=== PATIENT | female | born 1945 | race Caucasian/White ===

== ENCOUNTER 2024-10-02 17:49 | Inpatient (IN) | payer MEDICARE, SELFPAY ==
[2024-10-02 21:00] VITALS: BP 163/80; PULSE 71; RESP 16; TEMP 36.9; O2SAT 99
[2024-10-02 21:35] VITALS: O2SAT 99
[2024-10-02] MEDS: SODIUM CHLORIDE 0.9% 1,000 ML 75 ML IV (21:59)
[2024-10-02 22:00] VITALS: BMI 17.9
--- NOTE | 2024-10-02 23:08 | DI.RAD.S_ITS ---
PROCEDURE: XR PELVIS 1-2V INDICATIONS: r hip fx TECHNIQUE: 1 view(s) of the pelvis acquired. COMPARISON: None. FINDINGS: Diffuse osseous demineralization. Acute, varus impacted right proximal femoral intertrochanteric fracture with mild clockwise rotation of the femoral head relative to the right acetabulum. Surgical clips overlying the sacroiliac joints and pelvic ring. No other acute fracture or dislocation. IMPRESSION: Acute varus impacted right proximal femoral intertrochanteric fracture. Dictated by: Paolo Eaton M.D. on 10/03/2024 at 0:03 Approved by: Paolo Eaton M.D. on 10/03/2024 at 0:04
[2024-10-02] MEDS: OXYCODONE IR 5 MG TABLET PO (23:33)
[2024-10-02] MEDS: ACETAMINOPHEN 325 MG TABLET 650 MG PO (23:34)
[2024-10-03] VITALS (18 sets, daily range): BP systolic 94–155; BP diastolic 52–92; PULSE 60–74; RESP 12–20; TEMP 36.1–37.2; O2SAT 97–100; BMI 17.9
--- NOTE | 2024-10-03 | DI.RAD.S_ITS ---
PROCEDURE: XR HIP RT 2V INDICATIONS: RT HIP IM NAILING TECHNIQUE: 3 intraoperative fluoroscopic views of the hip were acquired. COMPARISON: None. FINDINGS: Intraoperative fluoroscopic images of right hip shows internal fixation of right proximal femur with intramedullary denisse and dynamic screws placement. Right hip alignment is anatomic. IMPRESSION: Fluoro guidance was provided intraoperatively for ORIF of right proximal femur performed by ordering physician. Dictated by: Brien Marti M.D. on 10/03/2024 at 18:09 Approved by: Brien Marti M.D. on 10/03/2024 at 18:10
--- NOTE | 2024-10-03 | DI.RAD.S_ITS ---
PROCEDURE: XR HIP W PEL IF DONE RT 2V INDICATIONS: POST OP TECHNIQUE: Two views of the right were acquired. COMPARISON: None. FINDINGS: Bones: Gamma nail transfixes a transverse intertrochanteric fracture . It is anatomically aligned. SI and hip joints: Moderate right and mild left hip degeneration noted. SI joints are normal. Moderate L5-S1 degenerative disc and facet disease appreciated. Soft tissues: Soft tissue swelling over the surgical site noted IMPRESSION: ORIF right intertrochanteric fracture in anatomic alignment Dictated by: Linden Gar M.D. on 10/04/2024 at 8:27 Approved by: Linden Gar M.D. on 10/04/2024 at 8:28
--- NOTE | 2024-10-03 00:26 | PM.HP.1 ---
History of Present Illness History of Present Illness Date Patient Seen: 10/02/24 Time Patient Seen: 22:45 Chief complaint: right hip pain Narrative: 79 y/o w/o reported PMH, on no prescription medications, transferred from another hospital with Rt hip fracture. She sustained accidental ground level fall. First fracture. Without prior injury-falls. Physically active, hikes. Has osteoporosis in family and on X-ray, takes only MVI. [facility] Social History household members: spouse Smoking Status: Never smoker alcohol intake: current Meds Home Medications and Allergies Home Medications Medication Instructions Recorded Confirmed Type Adults Multivitamin 1 tab PO DAILY 10/02/24 10/02/24 History Allergies Allergy/AdvReac Type Severity Reaction Status Date / Time Penicillins Allergy Mild Dizziness Verified 10/02/24 21:23 Review of Systems Review of Systems Narrative: MSK - Rt hip pain, radiating to knee, worse with movement CVS - w/o palpitations or chest pain, w/o exertional dyspnea GI - negative RS - negative Neuro - w/o prior falls or balance loss Exam Vital Signs (past 8 hours): - 10/02/24 21:00 10/02/24 21:35 Temperature 98.5 F Pulse Rate 71 Respiratory Rate 16 Blood Pressure 163/80 H Pulse Oximetry 99 99 Oxygen Delivery Method Room Air Oxygen Flow Rate 0 0 Oxygen Delivery Method Room Air Oxygen Flow Rate 0 Narrative Exam Narrative: General - in no distress HEENT - atraumatic MSK - Rt leg externally rotated and shortened, tender Rt hip Neuro - w/o deficits, w/o Rt leg numbness or weakness, lucid RS - CTA CVS - RRR, ANDI at [facility] Objective ECG Impression: Pending Assessment & Plan Assessment and plan (1) Femur fracture, right: Qualifiers: Encounter type: initial encounter Femur location: intertrochanteric Fracture alignment: displaced Fracture type: closed Qualified Code(s): S72.141A - Displaced intertrochanteric fracture of right femur, initial encounter for closed fracture Status: Acute Assessment & Plan narrative: Right Hip Fracture - NPO after midnight for Sx - labs ordered for 5 am - EKG, limited echocardiogram if available for ANDI heard at [facility]SB Osteoporosis - vitamin D pending DVT prophylaxis - SCDs Patient consented to a real time, audio-video telemedicine visit with electronic stethoscope and RN assisting during the exam. Patient located at [place], [place]. Provider located in [place]. Time-Based Coding :: [TOTAL MINUTES] spent with patient and on the chart (including review of chart, obtaining history, exam, reviewing outside data, placing orders, documenting exam and treatment plan, and counseling patient) on [DATE].
[2024-10-03] MEDS: OXYCODONE IR 5 MG TABLET PO ×3 (03:37→18:24)
[2024-10-03 06:24] LABS: Add Manual Diff / Slide Review NO; Basophils Absolute Auto 100 /uL (0-100); Eosinophils Absolute Auto 100 /uL (0-450); Eosinophils Percent Auto 1.2 % (2-4); Hematocrit 31.3 % (36-46); Hemoglobin 10.8 g/dL (12.0-16.0); Lymphocytes Absolute Auto 1500 /uL (1100-4500); Lymphocytes Percent Auto 22.4 % (25-40); Mean Corpuscular HGB Conc 34.5 % (30-36); Mean Corpuscular Hemoglobin 32.2 PG (26-34); Mean Corpuscular Volume 93.4 fL (80-100); Monocytes Absolute Auto 800 /uL (0-900); Monocytes Percent Auto 11.6 % (3-14); Neutrophils Absolute Auto 4100 /uL (1500-7000); Neutrophils Percent Auto 63.8 % (50-75); Platelet Count 217 X10^3/uL (150-400); Red Blood Cell Count 3.35 X10^6/uL (4.0-5.2); Red Cell Distribution Width 13.1 % (11.6-14.8); White Blood Cell Count 6.5 X10^3/uL (4.5-11.0)
[2024-10-03 06:31] LABS: INR 0.9 (0.9-1.3); Prothrombin Time 10.5 SECONDS (9.4-12.5)
[2024-10-03 06:33] LABS: PTT Partial Thromboplastin Tim 29 SECONDS (25.1-36.5)
[2024-10-03 06:36] LABS: Alanine Aminotransferase 19 IU/L (<35); Albumin 3.5 g/dL (3.5-5.0); Albumin Globulin Ratio 1.4 (1.0-2.8); Alkaline Phosphatase 59 U/L (38-126); Aspartate Aminotransferase 31 IU/L (14-36); BUN Creatinine Ratio 23.6 (6-22); Bilirubin Total 0.6 mg/dL (0.2-1.3); Blood Urea Nitrogen 13 mg/dL (7-17); Calcium 8.2 mg/dL (8.4-10.2); Carbon Dioxide 24 mmol/L (22-32); Chloride 104 mmol/L (98-107); Estimated Glomerular Filt Rate > 60 mL/min (>60); Globulin 2.5 g/dL (1.7-4.1); Glucose 103 mg/dL (70-99); HEMOLYSIS < 15 (0-50); Potassium 3.6 mmol/L (3.4-5.1); Sodium 135 mmol/L (137-145)
[2024-10-03 06:53] LABS: Vitamin D 25 Hydroxy (D3) 51.3 ng/mL (30.0-100.0)
[2024-10-03] MEDS: ACETAMINOPHEN 325 MG TABLET 650 MG PO ×3 (07:07→18:24)
--- NOTE | 2024-10-03 08:09 | P.CONS_ITS ---
History of Present Illness Consult details Date Patient Seen: 10/03/24 Time Patient Seen: 06:30 Chief complaint: DIRECT ADMIT right hip pain Reason for consult: Right hip fracture Requesting provider: [place] Narrative: The patient is a 79-year-old female that sustained a fall down 4 stairs at her home on 10/02/2024. She was unable to ambulate had immediate right hip pain. She was taken to [facility] and [place] where she was found to have a displaced right proximal femur fracture, intertrochanteric. No surgery was available at [facility] and no transfers to their associated [facility] so transferred to [facility] for orthopedic surgery was requested. The patient does not have diabetes she does not smoke. She has no history of heart or lung problems. She denies any head injury or other injuries or loss of consciousness. She did say that the base of her right thumb was sore but is okay today. She was transferred for orthopedic consultation orthopedic treatment for her right proximal femur fracture. She was a community ambulator. Lives at home. Has been around for help. States prior to the fall yesterday she was out in the garden. Gardening all day. Reports a skin reaction to penicillin that she had for an ear infection in college. Otherwise no medical allergies. Meds Home Medications and Allergies Home Medications Medication Instructions Recorded Confirmed Type Adults Multivitamin 1 tab PO DAILY 10/02/24 10/02/24 History Allergies Allergy/AdvReac Type Severity Reaction Status Date / Time Penicillins Allergy Mild Dizziness Verified 10/02/24 21:23 Review of Systems Review of Systems ROS: Yes All systems reviewed with the patient and are negative except as otherwise documented Exam Vital Signs (past 8 hours): - 10/03/24 01:00 10/03/24 04:00 10/03/24 05:00 Temperature 98.7 F Pulse Rate 70 Respiratory Rate 20 Blood Pressure 142/83 H Pulse Oximetry 98 98 98 Oxygen Delivery Method Room Air Room Air Oxygen Flow Rate 0 0 0 10/03/24 08:00 Temperature 98.2 F Pulse Rate 62 Respiratory Rate 16 Blood Pressure 136/70 Pulse Oximetry 99 Oxygen Delivery Method Oxygen Flow Rate 0 Oxygen Delivery Method Room Air Oxygen Flow Rate 0 Narrative Exam Narrative: General alert and oriented female in no acute distress lying in bed. HEENT exam normocephalic atraumatic Heart regular rate and rhythm Lungs clear to auscultation bilaterally Moving bilateral upper extremities without limitation. No gross deformities. Full finger flexion and extension full wrist extension and flexion Right lower extremity shortened and externally rotated. Dorsiflexion and plantar flexion demonstrated active and intact. Palpable dorsalis pedis pulses. Sensation intact to light touch. Calf soft knee benign. Thigh soft. SCD in place. Lower extremity normal dorsiflexion plantar flexion. Calf and thigh soft. Benign Objective Imaging AP pelvis x-ray: My impression: Displaced intertrochanteric hip fracture right hip varus angulation Labs 10/03/24 05:35 10/03/24 05:35 Labs: Laboratory Results - last 24 hr 10/03/24 05:35 WBC 6.5 RBC 3.35 L Hgb 10.8 L Hct 31.3 L MCV 93.4 MCH 32.2 MCHC 34.5 RDW 13.1 Plt Count 217 Neut % (Auto) 63.8 Lymph % (Auto) 22.4 L [place] % (Auto) 11.6 Eos % (Auto) 1.2 L Baso % (Auto) 1.0 Neut # (Auto) 4100 Lymph # (Auto) 1500 [place] # (Auto) 800 Eos # (Auto) 100 Baso # (Auto) 100 PT 10.5 INR 0.9 APTT 29 Sodium 135 L Potassium 3.6 Chloride 104 Carbon Dioxide 24 BUN 13 Creatinine 0.55 Estimated GFR > 60 BUN/Creatinine Ratio 23.6 H Glucose 103 H Calcium 8.2 L Magnesium 2.0 Total Bilirubin 0.6 AST 31 ALT 19 Alkaline Phosphatase 59 Total Protein 6.0 L Albumin 3.5 Globulin 2.5 Albumin/Globulin Ratio 1.4 25-OH Vitamin D Total 51.3 PFSH Social History marital status: household members: spouse Tobacco & Substance Use Smoking Status: Never smoker alcohol intake: current Assessment & Plan Assessment and plan (1) Femur fracture, right: Qualifiers: Encounter type: initial encounter Femur location: intertrochanteric F racture type: closed Fracture alignment: displaced Qualified Code(s): S72.141A - Displaced intertrochanteric fracture of right femur, initial encounter for closed fracture Status: Acute (2) Intertrochanteric fracture of right hip: Qualifiers: Encounter type: initial encounter Fracture type: closed Fracture alignment: displaced Qualified Code(s): S72.141A - Displaced intertrochanteric fracture of right femur, initial encounter for closed fracture Status: Acute (3) Osteoporotic hip fracture: Qualifiers: Encounter type: initial encounter Laterality: right Qualified Code(s): M80.051A - Age-related osteoporosis with current pathological fracture, right femur, initial encounter for fracture Status: Acute Plan Displaced shortened externally rotated right lower extremity consistent with displaced intertrochanteric hip fracture, proximal femur fracture, osteoporotic-- The patient has a displaced hip fracture. She was indicated for surgical fixation to restore alignment and mobility and reduce the risks of prolonged immobility and bedrest. Surgical risks and fracture risks discussed including blood clots, blood loss, nonunion malunion, symptomatic hardware, need for additional procedures, posttraumatic arthritis, nerve or vessel injury, infection. Discussed that the benefits of surgical fixation of the hip fracture outweigh risks. Decision for surgical fixation displaced right hip fracture. We will plan for that this evening. NPO except for meds. Discussed we will need to use assistive devices for ambulation for approximately 6 weeks postoperative this includes walker and then transitioning to a cane. The risks and benefits of the procedure have been discussed with the patient and given the opportunity to ask questions. The risks of surgery include but are not limited to infection, malunion, nonunion, persistence of pain, damage to nerves and blood vessels, posttraumatic arthritis, DVT, PE, cardiopulmonary complications and . The patient expressed a thorough understanding of the risks and benefits of surgery and has elected to proceed. Consent was signed. Assessment & Plan narrative: Decision for major orthopedic surgery, fracture fixation right hip. Necessity for inpatient admission to the hip fracture. Transferred notes and labs reviewed. X-ray independently interpreted. Decision for surgery discussion of risks benefits and alternatives. Time-Based Coding :: [TOTAL MINUTES] spent with patient and on the chart (including review of chart, obtaining history, exam, reviewing outside data, placing orders, documenting exam and treatment plan, and counseling patient) on [DATE].
--- NOTE | 2024-10-03 09:14 | EKG_ITS ---
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
--- NOTE | 2024-10-03 10:56 | DIET.CONS ---
Dietary Consultation Note Admission Date: 10/02/2024 17:49 Assessment: 79 y F admitted for hip fracture. Dietitian consulted for low BMI. Met with pt at bedside. Pt to have surgery this evening. Pt reports normal appetite before fall. Discusses typical foods she eats examples including syriac yogurts, nuts, tortillas and cheese, veggies and eggs, and fish. Pt is health conscious and describes a healthy diet. Eats breakfast, lunch, and dinner. Open to discussing options to increase energy when on diet and diet is tolerated after surgery for weight gain and recovery. Pt taking multivitamin, 500 mg calcium, and a zinc supplement. At first notes zinc supplement is 500 mg (excessive), but is unsure if that is actual amount and assumes it must be a more reasonable amount. Ht: 154.94 cm Wt: 43 kg BMI: 17.9 UBW: 90-95 lb (40.9-43 kg) per pt, reports no recent weight loss. Last BM: 10/01/24 (10/02/24 22:00) MNA: 11 Colten Score: 17 Diet: 10/03/24 00:01 NPO Diet Diet Modifications: NPO Type: NPO except for Meds Labs: RBC 3.35 X10^6/uL (4.0-5.2) L 10/03/24 05:35 Hgb 10.8 g/dL (12.0-16.0) L 10/03/24 05:35 Hct 31.3 % (36-46) L 10/03/24 05:35 Creatinine 0.55 mg/dL (0.52-1.04) 10/03/24 05:35 Nutrition Diagnosis: BMI underweight for age r/t inadequate oral intakes aeb BMI 17.9 Interventions: Provided handout on increasing calories and protein and discussed realistic options and ways to incorporate into day after surgery when diet is tolerated including small freq meals and nutrient dense options and caloric and protein beverage options Provided handout for the office of dietary supplements.gov with AIRPLANE NAVIGATOR and upper tolerable limit for zinc for patient to double check zinc supplement she is taking and zinc amount in the multivitamin EER: [id number] (30-35 kcal/kg) 50 g protein (1 g/kg) Monitoring/Evaluations: Pt NPO now, PO intakes when diet is ordered post surgery Electronically Signed by: Arminda Hayward 10/03/24 10:56 Clinical Dietitian [address] [address]
--- NOTE | 2024-10-03 11:16 | CM.DANOTE ---
Patient is a 79 yo female who was admitted INPT Status on 10/02/24 from [facility] after GLF down stairs and R hip fx. Pt has MCR and AARP for insurance and her PCP is not listed. EMR was reviewed. Per MD, pt had fall down her stairs at home and was taken to [facility] and no ortho team available and transferred to [facility] for consultation on hip fx. Per Ortho, recommending surgical intervention. Per silk screen processor, pt scheduled for OR today around [id number] for surgery. SW met bedside with pt and explained role and she confirms she lives near [place], technically a [facility] address, with her spouse and they are both quite active and independent and have property and animals that they manage at baseline. Pt states her spouse is her POA and they have local supportive family as well. Pt denies any hx of falls or fractures and does not use DME for ambulation. Pt denies any hx of HH or SNF for herself or spouse. SW explained process of PT/OT post surg likely in the AM since her surgery is later in the day to determine any discharge planning needs. Pt very motivated for home and would be agreeable to outpt vs HH PT pending progress. Pt confirms her spouse can be bedside tomorrow for CG training with PT and he plans to provide transport home when she is stable for discharge. Plan: SW to follow closely for PT/OT tomorrow post surgery to confirm safe plan of home with spouse assist and r/o HH and any further identified discharge planning needs. JULIO C Valdez Discharge Planning/Care Management CM Discharge Assessment Start: 10/02/24 18:50 Freq: Status: Active Protocol: Document 10/03/24 11:13 BF (Rec: 10/03/24 11:16 BF [id number]) Discharge Planning Assessment Assigned Fiscal Officer JULIO C Hanson DPOA/Assigned Designee Name spouse Herb Contact Information [phone] Advance Directives? No Advance Directives on File No History Provided By Patient,Medical Record Has Patient been admitted in last 30 No days? Prior Living Arrangements House Household Members spouse Type of transporation used prior to Drives own vehicle admit Independent with ADL's Yes Is patient alert and oriented? Yes Caregiver for Another No Patient/Family Preference OP PT Therapy Comment Pending surgery and PT/OT eval Barriers to Discharge No Discharge Plan Home Community Services Physical Therapy Transportation Arrangement Spouse plans to be bedside before d/c and provide transport Additional Comment Pending PT/OT eval post surg Whiteboard Updated in Patient Room with Yes name and ext. # of Fiscal Officer Review Status In Process Please Provide Date Initial DC 10/03/24 Assessment Was Performed Next Review Type Continued Stay Review
[2024-10-03] MEDS: SODIUM CHLORIDE 0.9% 1,000 ML 75 ML IV (11:38)
--- NOTE | 2024-10-03 13:38 | P.PN_ITS ---
Subjective Subjective Interval history: 79 F on no chronic medications transferred from outside ER for orthopedic interventions for a proximal R femur fracture, planned for later this evening. Patient admitted by overnight telehospitalist, TTE was ordered for murmur heard. Patient denies recent chest pain, shortness of breath, or dyspnea on exertion. She is and has been an avid walker, able to walk multiple miles without dyspnea. Exam Vital Signs (past 8 hours): - 10/03/24 08:00 10/03/24 09:14 10/03/24 12:00 Temperature 98.2 F 97.8 F Pulse Rate 62 67 Respiratory Rate 16 16 Blood Pressure 136/70 143/72 H Pulse Oximetry 99 97 98 Oxygen Delivery Method Room Air Oxygen Flow Rate 0 0 0 10/03/24 12:57 Temperature Pulse Rate Respiratory Rate Blood Pressure Pulse Oximetry 98 Oxygen Delivery Method Room Air Oxygen Flow Rate 0 Oxygen Delivery Method Room Air Oxygen Flow Rate 0 Narrative Exam Narrative: Gen: elderly female, well appearing, no acute distress CV: RRR no m/r/g Pulm: CTA b/l Abd: S NT ND Ext: no edema. Objective ECG Impression: NSR, no evidence of acute ischemia. Labs 10/03/24 05:35 10/03/24 05:35 Labs: Laboratory Results - last 24 hr 10/03/24 05:35 WBC 6.5 RBC 3.35 L Hgb 10.8 L Hct 31.3 L MCV 93.4 MCH 32.2 MCHC 34.5 RDW 13.1 Plt Count 217 Neut % (Auto) 63.8 Lymph % (Auto) 22.4 L [place] % (Auto) 11.6 Eos % (Auto) 1.2 L Baso % (Auto) 1.0 Neut # (Auto) 4100 Lymph # (Auto) 1500 [place] # (Auto) 800 Eos # (Auto) 100 Baso # (Auto) 100 PT 10.5 INR 0.9 APTT 29 Sodium 135 L Potassium 3.6 Chloride 104 Carbon Dioxide 24 BUN 13 Creatinine 0.55 Estimated GFR > 60 BUN/Creatinine Ratio 23.6 H Glucose 103 H Calcium 8.2 L Magnesium 2.0 Total Bilirubin 0.6 AST 31 ALT 19 Alkaline Phosphatase 59 Total Protein 6.0 L Albumin 3.5 Globulin 2.5 Albumin/Globulin Ratio 1.4 25-OH Vitamin D Total 51.3 PFSH Social History marital status: household members: spouse Smoking Status: Never smoker alcohol intake: current Assessment & Plan Assessment & Plan narrative: 1. Right intertrochanteric femur fracture, acute, POA, pathologic secondary to osteoporosis. - Appreciate orthopedic consultation and management, OR planned for later today. - Given no current symptoms, normal EKG, and no murmur on exam this morning for me, no need for TTE prior to surgery, patient is medically optimized. Will cancel echo order. - discussed with orthopedic surgeon this morning the above plan. - labs reviewed, only reamarkable finding is mild normocytic anemia with Hg 10.8, possibly due to IV fluids given. Will continue to monitor. 2. Elevated BP without diagnosis of HTN - likely secondary to pain, continue to monitor and consider antihypertensives if remains elevated 3. Normocytic anemia, POA - Hg 10.8, no signs or symptoms of active bleeding. continue to monitor with labs after surgery. Code: Full, surrogate is patient's spouse DVT: SCDs pending operative interventions. I have utilized all available immediate resources to obtain, update, or review the patient's current medications. Dispo: patient admitted under inpatient status. Unclear if will be able to discharge home or possible SNF, will have PT/OT evaluations. Additional history obtained via discussions with the ER provider. These discussions contributed to the creation of the above assessment and plan. I have reviewed patient's presenting documentation, labs, and imaging personally. Time-Based Coding :: [TOTAL MINUTES] spent with patient and on the chart (including review of chart, obtaining history, exam, reviewing outside data, placing orders, documenting exam and treatment plan, and counseling patient) on [DATE].
[2024-10-03] MEDS: HYDROMORPHONE 0.5 MG INJ IV (13:41)
[2024-10-03] MEDS: LACTATED RINGERS 1,000 ML 42 ML IV (15:55)
--- NOTE | 2024-10-03 16:50 | SUR.OPER ---
Supine on padded [place] table with bilateral legs secured in padded positioning boots and suspended in positioning spars, operative leg in traction per surgeon. Head on one pillow. Arm on non-operative side secured on padded armboard <90 degrees abduction. Arm on operative side padded and resting across chest then secured with tape over sheet. Padded perineal post in place per surgeon.
--- NOTE | 2024-10-03 17:44 | P.OP_ITS ---
Operative Date/Time/Diagnoses Date of procedure: 10/03/24 Time of procedure: 16:45 Pre-op diagnosis: Right intertrochanteric hip fracture, osteoporotic hip fracture, right proximal femur fracture Post-op diagnosis: same Procedure & Clinicians Procedure: Patient right intertrochanteric hip fracture with intramedullary denisse CPT code 55051 Same procedure as scheduled: Yes Indications: Patient was a 79-year-old female with a displaced right intertrochanteric proximal femur fracture. This was sustained in a fall. She was 1st seen in outside hospital and was transferred to this hospital for orthopedic care. SHe has been indicated for fixation of her hip fracture to restore alignment mobility and reduce the risks of prolonged immobility. We discussed risks and benefits of surgery. Benefits of hip fracture fixation outweigh risks. The risks and benefits of the procedure have been discussed with the patient and given the opportunity to ask questions. The risks of surgery include but are not limited to infection, malunion, nonunion, persistence of pain, damage to nerves and blood vessels, posttraumatic arthritis, DVT, PE, cardiopulmonary complications and . The patient expressed a thorough understanding of the risks and benefits of surgery and has elected to proceed. Consent was signed. Surgeon: Chari Collazo Click Yes if Unassisted: Yes Anesthesia Type: General and Local Operative Notes Findings: Displaced right intertrochanteric hip fracture through the greater troch exiting just proximal to the lesser trochanter. Shortened and externally rotated lower extremity. Closure Type: primary Specimen(s): none sent Prosthetic devices, grafts, tissues, transplants, or devices: Sch[employer]acher [employer]hew triGen InterTAN denisse 10 mm x 18 cm 125?. 85/80 mm lag screw and compression screw and a 5 mm x 32.5 mm tri Gen locking screw Estimated Blood Loss (mL): 20 Blood products transfused: none Tourniquet time (min): 0 Procedure in detail: Procedure cephalomedullary nail intertrochanteric hip fracture the CPT code 70032 Side: Right Implant Sch[employer]hew 10 x 18 cm cephalomedullary nail intertan Procedure: The patient was seen and the site of surgery was marked in the preoperative area. This was the right hip. Patient was brought to the operating room and placed on the operative table and general anesthesia was administered. The patient was positioned on the fracture table in standard fashion with a well-padded boots and a padded peroneal post. An SCD was on the contralateral leg. A formal time-out was called to confirm the patient's side and site of surgery administration of preoperative antibiotics. All were in agreement. The operative leg was then gently manipulated under fluoroscopic guidance to obtain a closed reduction in near anatomic alignment. At this point the operative extremity was prepped and draped in the standard sterile manner. The starting point was marked out using fluoroscopic guidance and marked on the skin. A guidewire was placed percutaneously and the starting point was obtained. Incision was made over the guidewire. An opening drill was inserted to the level of the lesser trochanter. The opening Reamer and guidewire were then removed. An 18 cm cephalomedullary nail was selected. The 10 x 18 cm nail was then slid into the canal. The nail was advanced to the proper depth and rotation. The guide for the cephalomedullary screw was then inserted into the external handle. An incision was made and the guide was placed down to the bone. A guidewire was placed to the proper depth into the femoral head and this was confirmed on AP and lateral imaging. The tip apex distance was evaluated and appropriate. This was measured. Next the outer cortex was drilled for the interlocking screw and the anti rotation bar was placed. The cephalomedullary screw length was then measured off the drill again. A 85 mm lag screw was selected and the corresponding interlocking compression screw. To allow for compression. A guidewire was then over drilled and the lag screw placed. The anti rotation bar was removed and then the locking compression screws were placed and confirmed on biplanar fluoroscopy. The integrated compression screw was tightened. Attention was turned to the distal interlock. This was placed with the guide in the standard technique. AP and lateral images were captured in the or confirming alignment hardware placement. Wounds were irrigated and closed in layers with. 2- 0 in the deep fascia and in the subcutaneous tissue and kacie in the skin. 0.25% Marcaine with epinephrine was injected into the incision sites for local anesthetic. Sterile dressings were applied with an Aquacel. There no immediate complications. Surgical counts were correct. The patient tolerated the procedure well was taken to recovery room. Intraoperative fluoroscopy AP and lateral x-rays demonstrated interval reduction and near anatomic alignment right hip fracture with intramedullary denisse fixation. Complications: none Post-operative Condition: stable Disposition: PACU Plan for aftercare: Weightbearing with assistive devices, walker x6 weeks. Lovenox 30 mg subcutaneous daily x4 weeks for DVT prophylaxis Follow up in [facility] with Dr. Collazo in 2 weeks for staple removal and new x-rays. May shower with Aquacel dressing
[2024-10-03] MEDS: SODIUM CHLORIDE 0.9% FLUSH 10 ML IV (21:14)
[2024-10-04] MEDS: CEFAZOLIN 2 GM/100 ML PREMIX 100 ML IV ×2 (00:07→11:12)
[2024-10-04] MEDS: OXYCODONE IR 5 MG TABLET PO ×4 (00:15→18:15)
[2024-10-04] MEDS: ACETAMINOPHEN 325 MG TABLET 650 MG PO ×4 (00:15→18:16)
[2024-10-04 01:00] VITALS: BP 112/79; PULSE 103; TEMP 36.9; O2SAT 100
[2024-10-04 05:12] LABS: Add Manual Diff / Slide Review NO; Basophils Absolute Auto 0 /uL (0-100); Basophils Percent Auto 0.1 % (0-2); Eosinophils Absolute Auto 0 /uL (0-450); Hematocrit 28.5 % (36-46); Hemoglobin 9.6 g/dL (12.0-16.0); Lymphocytes Absolute Auto 600 /uL (1100-4500); Lymphocytes Percent Auto 9.1 % (25-40); Mean Corpuscular HGB Conc 33.8 % (30-36); Mean Corpuscular Hemoglobin 31.5 PG (26-34); Mean Corpuscular Volume 93.3 fL (80-100); Monocytes Absolute Auto 500 /uL (0-900); Monocytes Percent Auto 8.7 % (3-14); Neutrophils Absolute Auto 5100 /uL (1500-7000); Neutrophils Percent Auto 82.1 % (50-75); Platelet Count 207 X10^3/uL (150-400); Red Blood Cell Count 3.05 X10^6/uL (4.0-5.2); Red Cell Distribution Width 12.7 % (11.6-14.8); White Blood Cell Count 6.3 X10^3/uL (4.5-11.0)
[2024-10-04 05:25] LABS: Alanine Aminotransferase 17 IU/L (<35); Albumin 3.1 g/dL (3.5-5.0); Albumin Globulin Ratio 1.1 (1.0-2.8); Alkaline Phosphatase 52 U/L (38-126); Aspartate Aminotransferase 29 IU/L (14-36); BUN Creatinine Ratio 19.6 (6-22); Bilirubin Total 0.6 mg/dL (0.2-1.3); Blood Urea Nitrogen 11 mg/dL (7-17); Calcium 8.1 mg/dL (8.4-10.2); Carbon Dioxide 23 mmol/L (22-32); Chloride 105 mmol/L (98-107); Estimated Glomerular Filt Rate > 60 mL/min (>60); Globulin 2.8 g/dL (1.7-4.1); Glucose 117 mg/dL (70-99); HEMOLYSIS < 15 (0-50); Magnesium 1.9 mg/dL (1.6-2.3); Potassium 4.2 mmol/L (3.4-5.1); Sodium 133 mmol/L (137-145); Total Protein 5.9 g/dL (6.3-8.2)
[2024-10-04 06:00] VITALS: BP 146/66; PULSE 61; RESP 20; TEMP 37.1; O2SAT 99
[2024-10-04] MEDS: HYDROMORPHONE 0.5 MG INJ IV (07:04)
[2024-10-04 08:00] VITALS: BP 146/76; PULSE 68; RESP 16; TEMP 36.8; O2SAT 98
--- NOTE | 2024-10-04 09:50 | PT.IIE ---
Current Diagnoses Age-related osteoporosis with current pathological fracture, right femur, initial encounter for fracture (10/02/24) Displaced intertrochanteric fracture of right femur, initial encounter for closed fracture (10/02/24) Surgery Performed Operation Date: 10/03/24 17:00 Actual Procedures p Intramedullary Nailing Femur(Right) - Chari Collazo MD Physical Therapy Inpatient Evaluation/Re-Eval M1 PT/OT-IP Prior Functional Status Start: 10/04/24 10:54 Freq: NEEDED Status: Active Protocol: Document 10/04/24 10:54 [facility] (Rec: 10/04/24 11:07 [facility] Desktop) Medical Review Prior Functional Status Communication I Mobility and Gait I with no devices used. Activities of Daily Living and IADL's I with all ADL and IADL needs. Prior Functional Level (Other details) Pt's currently moving items downstairs so pt able to sleep on the main level. Pt has dogs at home. Social History Household Members spouse Living Arrangements House Number of Floors (Floors) Two Floors Number of Stairs To Enter/Railing? Pt looking to stay on the main floor. Pt has 1 step and then 3 steps to get into the house . Home Environment Standard Height Toilet,Tub/ Shower M2 PT-IP Current Condition Start: 10/04/24 12:29 Freq: NEEDED Status: Active Protocol: Document 10/04/24 09:50 [facility] (Rec: 10/04/24 13:06 [facility] Desktop) Physical Therapy Current Condition Current Condition Evaluation Date 10/04/24 Treatment Diagnosis right hip fx, s/p ORIF, impaired gait Onset Date 10/02/24 M3 PT-IP Subjective Start: 10/04/24 12:29 Freq: NEEDED Status: Active Protocol: Document 10/04/24 09:50 [facility] (Rec: 10/04/24 13:06 [facility] Desktop) Subjective Physical Therapy Visit Type Type Initial Evaluation Visit Start Time 09:00 Visit Stop Time 09:50 Notes 50 minutes Number of HOPPER ATTENDANT Visits 0 Physical Therapy Visit Comments Patient Comments She reports having a lot of pain at home before deciding to come to the hospital after her fall. She is fearful of the pain when moving today. Patient Goals Be able to go home Therapy Pain Assessment Pain When Pain Assessed After Treatment Pain Present Pain Present Pain Reported Location Right Hip Intensity 3 Scale Used Numeric (0 - 10) Description Aching,Throbbing,With Movement Pain Management Techniques Modification of Treatment,Re- positioning,Timing of Activity with Medications M4 PT-IP Mobility and Gait Start: 10/04/24 12:29 Freq: NEEDED Status: Active Protocol: Document 10/04/24 09:50 [facility] (Rec: 10/04/24 13:06 [facility] Desktop) PT-Bed Mobility Assessment Supine to Sit Supine to Sit Standby Assistance Scooting Scooting to Edge of Bed Independent PT-Transfer Assessment Sit to and From Stand Sit to and from Stand Contact Guard Assistance, Minimal Assistance,Use of Upper Extremities Equipment Transfer Assistive Device Gait Belt,Front Wheeled Walker Transfers Transfer Destination Chair Transfer Technique Stand Step Pivot Transfer Ability Level of Assist Contact Guard Assistance, Minimal Assistance,Use of Upper Extremities Comments Mobility Comments Pt transferred up to the recliner. Left her sitting up with call light and needs close. Pt instructed to have staff assist for all mobility. Educated pt in sequencing in using UE's to assist with sit- stand with use of FWW. She use UE assist and moves slowly to get right LE out of bed during supine to sit. Gait Assessment Gait Gait Assistance Required: Contact Guard Assist,Minimum Assistance Distance (Feet) 2 Assistive Devices Assistive Device Gait Belt,Front Wheeled Walker Gait Deviations General Gait Pattern Antalgic,Decreased Stride Length,Decreased Feet Clearance Factors Limiting Gait Function Factors Limiting Gait Function Decreased Activity Tolerance, Decreased Strength,Pain,Poor Balance Comments Gait Comments educated pt in use of UE support to manage right LE pain/weakness PT-Balance Assessment Sitting Balance and Reactions Static Sitting Balance Ability Good Dynamic Sitting Balance Ability Good Standing Balance and Reactions Static Standing Balance Ability Fair Dynamic Standing Balance Ability Fair Device Used FWW M5 PT-IP Objective Assessments Start: 10/04/24 12:29 Freq: NEEDED Status: Active Protocol: Document 10/04/24 09:50 [facility] (Rec: 10/04/24 13:06 [facility] Desktop) Orientation Orientation/Cognition Level of Alertness Alert Orientation Name,Age,Birthday,Month,Date, Year,Day of Week,Place, Situation Language Function Ability No Deficits Noted Safety Awareness Understands Safety Issues Memory Description No Deficits Noted Gross Range of Motion Upper Extremity ROM Assessment Within Functional Limits Impairments hx left shoulder dislocation but able to use if functionally now with good recovery Lower Extremity ROM Assessment Within Functional Limits Strength Upper Extremity Strength Assessment Within Functional Limits Lower Extremity Strength Assessment Right Impaired Hip flexion 3-/5 Knee ext 3/5 Ankle DF 4+/5 Comments Strength Comments pain right hip and thigh area limits strength Coordination Assessment Gross Coordination Gross Coordination WNL Sensation Assessment Sensation Gross Sensation WNL Comments Sensation Comments no numbness/tingling reported Muscle Tone Muscle Tone WNL Yes Comments Muscle Tone Comments she reports a hx of muscle spasms in LE's with some restless leg M6 PT-IP Treatment Start: 10/04/24 12:29 Freq: NEEDED Status: Active Protocol: Document 10/04/24 09:50 [facility] (Rec: 10/04/24 13:06 [facility] Desktop) Physical Therapy Treatment Exercises Exercises Ankle Pumps,Seated Knee Flexion/Extension Education Education Provided Weight Bearing Status,Post-Op Packet,Safety Other Treatments Other Treatment Performed no family present this visit M7 PT-IP Assessment and Plan Start: 10/04/24 12:29 Freq: NEEDED Status: Active Protocol: Document 10/04/24 09:50 [facility] (Rec: 10/04/24 13:06 [facility] Desktop) PT Summary Assessment and Plan Potential Rehabilitation Potential Good Status of Condition at Evaluation Evolving Summary Impairments Pain,Strength,Balance,Bed Mobility,Transfers,Gait, Activity Tolerance Assessment Summary Sanna is alert and resting in bed today. She fell at home and suffered right intertrochanteric fx. She underwent right hip ORIF . Her surgeon ordered WBAT with a FWW for 6 weeks. Pt was able to sit up edge of bed, stand with the FWW and progress to sitting up in the recliner this visit with one person assist. No light- headedness and no nausea this visit. She is fearful of causing pain in her right hip with activity. She needed extra training to use the FWW since she has no history of using a device for gait. She demonstrates good ability to use UE's on the FWW to compensate for right LE pain/ weakness. She will need to progress to ambulating functional distances and be able to do 3 steps to get back into the house. Will work towards her goal of discharging home. She may need SNF rehab if she progresses slowly post-op. Goals Bed Mobility Goal Independent Transfer Goal Standby Assistance,Front Wheeled Walker Gait Goal Standby Assistance,Front Wheel Walker Gait Distance 100 feet Other Goals up/down 3 steps with min assist and UE support Days to Meet Goals 3 Frequency of Treatment Frequency Of Treatment Twice a Day Treatment Plan Physical Therapy Treatment Plan Bed Mobility Training,Transfer Training,Gait Training, Therapeutic Exercise,Balance Retraining,Post Op Education, Discharge Planning,Hot or Cold Pack,Neuromuscular Re-ed Precautions Other Precautions order for pt to use FWW at all times for 6 weeks s/p ORIF osteoporosis Weight Bearing Status Weight Bearing Status Weight Bear as Tolerated Allowed Weight Bearing Amount (enter % right LE with FWW or #) (%) Recommendations To Nursing Amount of Assist Needed 1 Person Assist Discharge Recommendations PT Discharge Recommendations Home vs SNF Other Discharge Recommendations May be able to progress to home in few days Equipment Needed for Home Before FWW Discharge Transportation Needs at Discharge Private Vehicle - PT assist 1
--- NOTE | 2024-10-04 11:08 | OT.IP.EVAL ---
Current Diagnoses Age-related osteoporosis with current pathological fracture, right femur, initial encounter for fracture (10/02/24) Displaced intertrochanteric fracture of right femur, initial encounter for closed fracture (10/02/24) Surgery Performed Operation Date: 10/03/24 17:00 Actual Procedures p Intramedullary Nailing Femur(Right) - Chari Collazo MD Occupational Therapy Inpatient Evaluation/Re-Eval M1 PT/OT-IP Prior Functional Status Start: 10/04/24 10:54 Freq: NEEDED Status: Active Protocol: Document 10/04/24 10:54 [facility] (Rec: 10/04/24 11:07 [facility] Desktop) Medical Review Prior Functional Status Communication I Mobility and Gait I with no devices used. Activities of Daily Living and IADL's I with all ADL and IADL needs. Prior Functional Level (Other details) Pt's currently moving items downstairs so pt able to sleep on the main level. Pt has dogs at home. Social History Household Members spouse Living Arrangements House Number of Floors (Floors) Two Floors Number of Stairs To Enter/Railing? Pt looking to stay on the main floor. Pt has 1 step and then 3 steps to get into the house . Home Environment Standard Height Toilet,Tub/ Shower M2 OT-IP Current Condition Start: 10/04/24 10:54 Freq: Status: Active Protocol: Document 10/04/24 10:54 [facility] (Rec: 10/04/24 11:07 [facility] Desktop) Occupational Therapy Current Condition Current Condition Evaluation Date 10/02/24 Treatment Diagnosis S/P R Hip ORIF Diagnosis Onset Date 10/04/24 Post Operative Precautions Other Precautions Pt must use the FWW fro 6 wks. M3 OT- IP Subjective and Pain Start: 10/04/24 10:54 Freq: Status: Active Protocol: Document 10/04/24 10:54 [facility] (Rec: 10/04/24 11:07 [facility] Desktop) OT- Subjective Occupational Therapy Visit Type Type Initial Evaluation Visit Start Time 10:15 Visit Stop Time 10:53 Occupational Therapy Visit Comments Patient Comments Pt agreed to get up. Patient/Caregiver Goals TO get better. OT Pain Assessment Pain When Pain Assessed At Rest Pain Present Pain Present Pain Reported Location Right Hip Intensity 3 Scale Used Numeric (0 - 10) Description Spasm M4 OT- IP ADL's Start: 10/04/24 10:54 Freq: Status: Active Protocol: Document 10/04/24 10:54 [facility] (Rec: 10/04/24 11:07 [facility] Desktop) OT [id number] Comments OT Self-Feeding Comments Not at meal time. OT ADL-Grooming Comments OT Grooming Comments Not performed. OT ADL-Oral Care Comments Oral Care Comments Not performed. OT ADL-Dressing General Eval Lower Body Dressing Ability Maximum Assistance Areas Needing Assistance Socks Assistive Devices Dressing Assistive Devices Vac Press Operator,Sock Aid Comments OT Dressing Comments Able to practice use of LB dressing equipment. Educated to dress the RLE first and take out last. OT ADL-Toileting General Evaluation Toileting Ability Total Assistance Areas Needing Assistance Empty Catheter or Colostomy Comments OT Toileting Comments Ferrari. Suggested pt get a BSC. OT ADL-Bathing Comments OT Bathing Comments Pt will benefit from a tub bench of shower chair with grab bar. M5 OT- IP IADL's Start: 10/04/24 10:54 Freq: Status: Active Protocol: Document 10/04/24 10:54 [facility] (Rec: 10/04/24 11:07 [facility] Desktop) OT-Instrumental Activities of Daily Living Home Safety Awareness Awareness of Need for Assistance at Home Good Awareness Ability to Problem Solve Emergency Able to Problem Solve Situations Medication Management Medication Management No Deficits Identified Money Management Money Management No Deficits Identified Meal Preparation Meal Preparation Comments Pt's to be able to asisst. Rail Car Operator Rail Car Operator Comments Pt's to assist. M6 OT- IP Functional Cognition Start: 10/04/24 10:54 Freq: Status: Active Protocol: Document 10/04/24 10:54 [facility] (Rec: 10/04/24 11:07 [facility] Desktop) Cognitive Factors Limiting Selfcare Function Cognitive Ability Level of Alertness Alert Patient Orientation Name,Age,Birthday,Month,Date, Year,Day of Week,Place, Situation Attention Span Ability Capable of Focused Attention, Capable of Sustained Attention Ability to Follow Commands Able to Follow One Step Commands Cognitive Comments Cognitive Assessment Comments Pt able to follow commands but needing lots of reassurance and encouragement. OT- Vision and Hearing OT- Hearing Assessment OT- Hearing Assessment WFL OT- Vision Assessment Visual Acuity Glasses All The Time Visual Attentiveness WFL Occular Pursuits WFL M7 OT- IP Mobility and Balance Start: 10/04/24 10:54 Freq: Status: Active Protocol: Document 10/04/24 10:54 [facility] (Rec: 10/04/24 11:07 [facility] Desktop) OT-Transfer Assessment Sit to and From Stand Sit to and from Stand Contact Guard Assistance Technique Transfer Destination Chair Transfer Technique Stand Step Pivot Devices Transfer Assistive Devices Gait Belt,Front Wheeled Walker Comments Mobility Comments Pt able to come to stand with CGA with FWW and able to take a few steps forwards and back. BP 154/100. Pt wanting meds for muscle spasm and nursing notified. OT- Balance Assessment Sitting Balance and Reactions Static Sitting Balance Ability Normal Dynamic Sitting Balance Ability Good Standing Balance and Reactions Static Standing Balance Ability Fair Dynamic Standing Balance Ability Fair M8 OT- IP Objective Assessments Start: 10/04/24 10:54 Freq: Status: Active Protocol: Document 10/04/24 10:54 [facility] (Rec: 10/04/24 11:07 [facility] Desktop) OT Gross Range of Motion Upper Extremity Range of Motion Assessment Within Functional Limits OT Strength Upper Extremity Strength Assessment Within Functional Limits M9 OT- IP Assessment and Plan Start: 10/04/24 10:54 Freq: Status: Active Protocol: Document 10/04/24 10:54 [facility] (Rec: 10/04/24 11:07 [facility] Desktop) OT Summary Assessment and Plan Potential Rehabilitation Potential Excellent Analytic Complexity at Evaluation Low Summary OT Impairments Pain,Strength,Balance, Functional Mobility,Dressing, Toileting,Bathing,Toilet Transfers,Shower Transfers, Activity Tolerance Progress Towards Goals Progressing Toward Goals,Slow Progress due to Pain,Slow Progress due to Activity Tolerance Assessment Summary Pt low complexity and main barriers are steps, pain, and now will need FWW and ADL equipment at home to use. Pt to go home when medically stable. Pt requesting to obtain a FWW from the hospital. Goals Self-Feeding Goal Independent Grooming Goal Independent Dressing Goal Independent,Long Handled Shoe Horn,Vac Press Operator,Sock Aid Toileting Goal Independent Bathing Goal Minimal Assistance Toilet Transfer Goal Independent Shower Transfer Goal Contact Guard Assistance Days to Meet Goals 7 Frequency of Treatment Other frequency 5x/week Treatment Plan OT Treatment Plan ADL Training,Functional Mobility,Patient/Family Education,Discharge Planning Discharge Recommendations OT Discharge Recommendations Home with 20/12 Assist Available Home Equipment Needs BSC, tub bench, FWW , LB dressing equipment Transportation Needs at Discharge Private Vehicle
[2024-10-04] MEDS: ENOXAPARIN 30 MG/0.3 ML SYRINGE SUBCUT (11:09)
[2024-10-04] MEDS: SODIUM CHLORIDE 0.9% FLUSH 10 ML IV ×2 (11:23→21:35)
[2024-10-04 12:00] VITALS: BP 158/82; PULSE 77; RESP 16; TEMP 36.7; O2SAT 99
--- NOTE | 2024-10-04 12:40 | P.PN_ITS ---
Subjective Subjective Interval history: 79 F on no chronic medications transferred from outside ER for orthopedic interventions for a proximal R femur fracture. She had nail placed on 10/03. She feels well today, some muscle spasms overnight. Took a couple of steps with therapy this morning. Exam Vital Signs (past 8 hours): - 10/04/24 06:00 10/04/24 08:00 10/04/24 12:00 Temperature 98.7 F 98.2 F 98.0 F Pulse Rate 61 68 77 Respiratory Rate 20 16 16 Blood Pressure 146/66 H 146/76 H 158/82 H Pulse Oximetry 99 98 99 Oxygen Flow Rate 0 0 0 Oxygen Delivery Method Room Air Oxygen Flow Rate 0 Narrative Exam Narrative: Gen: elderly female, well appearing, no acute distress CV: RRR no m/r/g Pulm: CTA b/l Abd: S NT ND Ext: no edema. Objective Labs 10/04/24 04:18 10/04/24 04:18 Labs: Laboratory Results - last 24 hr 10/04/24 04:18 WBC 6.3 RBC 3.05 L Hgb 9.6 L Hct 28.5 L MCV 93.3 MCH 31.5 MCHC 33.8 RDW 12.7 Plt Count 207 Neut % (Auto) 82.1 H Lymph % (Auto) 9.1 L [place] % (Auto) 8.7 Eos % (Auto) 0.0 L Baso % (Auto) 0.1 Neut # (Auto) 5100 Lymph # (Auto) 600 L [place] # (Auto) 500 Eos # (Auto) 0 Baso # (Auto) 0 Sodium 133 L Potassium 4.2 Chloride 105 Carbon Dioxide 23 BUN 11 Creatinine 0.56 Estimated GFR > 60 BUN/Creatinine Ratio 19.6 Glucose 117 H Calcium 8.1 L Magnesium 1.9 Total Bilirubin 0.6 AST 29 ALT 17 Alkaline Phosphatase 52 Total Protein 5.9 L Albumin 3.1 L Globulin 2.8 Albumin/Globulin Ratio 1.1 PFSH Social History marital status: household members: spouse Smoking Status: Never smoker alcohol intake: current Assessment & Plan Assessment & Plan narrative: 1. Right intertrochanteric femur fracture, acute, POA, pathologic secondary to osteoporosis. - Appreciate orthopedic consultation and management, s/p nail placement on 10/03. - pain control as needed, added muscle relaxant today with robaxin QID prn. - Hg 9.6, anticipated after surgery, will repeat CBC tomorrow AM. - continue PT/OT 2. Elevated BP without diagnosis of HTN - likely secondary to pain, continue to monitor and consider antihypertensives if remains elevated. - fairly labile with periods of normotension and mild hypertension post-op - worry about orthostatic hypotension / overtreatment with initiation of hypertensives, continue to monitor BP for now. Likely recommend home monitoring of BP after discharge and PCP follow up. 3. Normocytic anemia, POA - Hg 9.6 from 10.8 after surgery. no signs or symptoms of active bleeding. continue to monitor with labs after surgery. Code: Full, surrogate is patient's spouse DVT: SCDs pending operative interventions. I have utilized all available immediate resources to obtain, update, or review the patient's current medications. Dispo: patient admitted under inpatient status. Unclear if will be able to discharge home or possible SNF, will have PT/OT evaluations. Additional history obtained via discussions with the ER provider. These discussions contributed to the creation of the above assessment and plan. I have reviewed patient's presenting documentation, labs, and imaging personally. Time-Based Coding :: [TOTAL MINUTES] spent with patient and on the chart (including review of chart, obtaining history, exam, reviewing outside data, placing orders, documenting exam and treatment plan, and counseling patient) on [DATE].
--- NOTE | 2024-10-04 14:20 | CM.DPNOTE ---
DCP Cont Reviewed chart. Patient discussed in multidisciplinary rounds. Therapies are recommending home w/sp and HH vs SNF depending on patient's progress. Patient is confident that she will be able to return home, HH vs outpatient therapies. CM team following clinical course closely in case any discharge needs or concerns arise. JOHN
--- NOTE | 2024-10-04 15:45 | PT.IPTN ---
Current Diagnoses Age-related osteoporosis with current pathological fracture, right femur, initial encounter for fracture (10/02/24) Displaced intertrochanteric fracture of right femur, initial encounter for closed fracture (10/02/24) Surgery Performed Operation Date: 10/03/24 17:00 Actual Procedures p Intramedullary Nailing Femur(Right) - Chari Collazo MD Physical Therapy Treatment Note M2 PT-IP Current Condition Start: 10/04/24 12:29 Freq: NEEDED Status: Active Protocol: Document 10/04/24 09:50 DLM (Rec: 10/04/24 13:06 DLM Desktop) Physical Therapy Current Condition Current Condition Evaluation Date 10/04/24 Treatment Diagnosis right hip fx, s/p ORIF, impaired gait Onset Date 10/02/24 M3 PT-IP Subjective Start: 10/04/24 12:29 Freq: NEEDED Status: Active Protocol: Document 10/04/24 15:45 DLM (Rec: 10/04/24 16:04 DLM Desktop) Subjective Physical Therapy Visit Type Type Treatment Note Visit Start Time 15:00 Visit Stop Time 15:45 Notes 45 minutes Number of SURVEILLANCE DUAL RATE OFFICER Visits 0 Physical Therapy Visit Comments Patient Comments She feels the ice helps with her pain. Patient Goals Discharge home Therapy Pain Assessment Pain When Pain Assessed During Mobility Pain Present Pain Present Pain Reported Location Right Hip Intensity 4 Scale Used Numeric (0 - 10) Description Aching,Tender,Tightness,With Movement Pain Behaviors Guarding Pain Management Techniques Apply Cold,Modification of Treatment M4 PT-IP Mobility and Gait Start: 10/04/24 12:29 Freq: NEEDED Status: Active Protocol: Document 10/04/24 15:45 DLM (Rec: 10/04/24 16:04 DLM Desktop) PT-Bed Mobility Assessment Supine to Sit Supine to Sit Standby Assistance Sit to Supine Sit to Supine Standby Assistance Scooting Scooting to Edge of Bed Independent Scooting Up and Down in Bed Independent PT-Transfer Assessment Sit to and From Stand Sit to and from Stand Contact Guard Assistance Equipment Transfer Assistive Device Gait Belt,Front Wheeled Walker Transfers Transfer Destination Bed,Chair Transfer Technique Stand Step Pivot Transfer Ability Level of Assist Contact Guard Assistance Comments Mobility Comments She is slow getting right LE in and out of bed, pt using left LE or UE's to help right LE. Pt sitting up in recliner at the start of this visit. Pt returned to the recliner after activity per her request with needs and call light close. Pt has her feet elevated and ice on right hip area to manage her pain. She needs reminders for safe use of her UE's during sit-stand with the FWW. With initial stepping on right LE she has difficulty keeping her foot flat but this improves as she moves. Gait Assessment Gait Gait Assistance Required: Contact Guard Assist Distance (Feet) 35 Able to Maintain Weight Bearing Status Yes During Gait Assistive Devices Assistive Device Gait Belt,Front Wheeled Walker Gait Deviations General Gait Pattern Antalgic,Decreased Stride Length,Step-to Gait Factors Limiting Gait Function Factors Limiting Gait Function Decreased Activity Tolerance, Decreased Strength,Pain,Poor Balance Comments Gait Comments Her gait pattern slowly improves as she ambulates. Initial gait she tries to vault to advance right LE ( swing phase) and then weight bears on forefoot. She responds well to verbal cues. She shows good use of UE's on FWW to compensate for right LE . Stair Climbing Assessment Comments Stair Climbing Comments will need training next visit if her gait continues to improve PT-Balance Assessment Sitting Balance and Reactions Static Sitting Balance Ability Normal Dynamic Sitting Balance Ability Normal Standing Balance and Reactions Static Standing Balance Ability Good Dynamic Standing Balance Ability Fair Device Used FWW M5 PT-IP Objective Assessments Start: 10/04/24 12:29 Freq: NEEDED Status: Active Protocol: Document 10/04/24 09:50 DLM (Rec: 10/04/24 13:06 DLM Desktop) Orientation Orientation/Cognition Level of Alertness Alert Orientation Name,Age,Birthday,Month,Date, Year,Day of Week,Place, Situation Language Function Ability No Deficits Noted Safety Awareness Understands Safety Issues Memory Description No Deficits Noted Gross Range of Motion Upper Extremity ROM Assessment Within Functional Limits Impairments hx left shoulder dislocation but able to use if functionally now with good recovery Lower Extremity ROM Assessment Within Functional Limits Strength Upper Extremity Strength Assessment Within Functional Limits Lower Extremity Strength Assessment Right Impaired Hip flexion 3-/5 Knee ext 3/5 Ankle DF 4+/5 Comments Strength Comments pain right hip and thigh area limits strength Coordination Assessment Gross Coordination Gross Coordination WNL Sensation Assessment Sensation Gross Sensation WNL Comments Sensation Comments no numbness/tingling reported Muscle Tone Muscle Tone WNL Yes Comments Muscle Tone Comments she reports a hx of muscle spasms in LE's with some restless leg M6 PT-IP Treatment Start: 10/04/24 12:29 Freq: NEEDED Status: Active Protocol: Document 10/04/24 15:45 DLM (Rec: 10/04/24 16:04 DLM Desktop) Physical Therapy Treatment Exercises Exercises Ankle Pumps,Gluteal Sets,Quad Sets,Heel Slides,Supine Hip Abduction Education Education Provided Safety Other Treatments Other Treatment Performed pt needs assistance with supine hip abduction exercise but able to do others on her own physically, educated pt on technique for good performance of written HEP educated pt to decrease her fall risks M7 PT-IP Assessment and Plan Start: 10/04/24 12:29 Freq: NEEDED Status: Active Protocol: Document 10/04/24 15:45 DLM (Rec: 10/04/24 16:04 DLM Desktop) PT Summary Assessment and Plan Summary Impairments Pain,Strength,Balance,Bed Mobility,Transfers,Gait, Activity Tolerance Progress Towards Goals Slow Progress due to Activity Tolerance Assessment Summary Sanna is progressing slowly but well post-op day one. She is eager to discharge home when she is medically ready. Her gait is slowly improving with the FWW. Will focus on increasing her distances of gait for household distances and stair training to get up the 3 steps to enter her home. If she does not progress well she may need SNF rehab. Will work towards her goal of discharge home. Her was not present today to discuss discharge planning. Goals Bed Mobility Goal Independent Transfer Goal Standby Assistance,Front Wheeled Walker Gait Goal Standby Assistance,Front Wheel Walker Gait Distance 100 feet Other Goals up/down 3 steps with min assist and UE support Days to Meet Goals 3 Frequency of Treatment Frequency Of Treatment Twice a Day Treatment Plan Physical Therapy Treatment Plan Bed Mobility Training,Transfer Training,Gait Training, Therapeutic Exercise,Balance Retraining,Post Op Education, Discharge Planning,Hot or Cold Pack,Neuromuscular Re-ed Precautions Other Precautions order for pt to use FWW at all times for 6 weeks s/p ORIF osteoporosis Weight Bearing Status Weight Bearing Status Weight Bear as Tolerated Allowed Weight Bearing Amount (enter % right LE with FWW or #) (%) Recommendations To Nursing Amount of Assist Needed 1 Person Assist Discharge Recommendations PT Discharge Recommendations Home with Assistance Other Discharge Recommendations if she can continue to progress gait and do stairs Equipment Needed for Home Before FWW (youth since she is 5'1 Discharge tall) Transportation Needs at Discharge Private Vehicle - PT assist 1
[2024-10-04 16:00] VITALS: BP 167/88; PULSE 74; RESP 16; TEMP 37.2; O2SAT 98
[2024-10-04] MEDS: methocarbamoL 500 MG TABLET PO ×2 (16:47→22:48)
[2024-10-04 20:00] VITALS: BP 150/81; PULSE 69; RESP 18; TEMP 37.3; O2SAT 100
--- NOTE | 2024-10-04 20:15 | P.PN_ITS ---
Subjective Subjective Date Patient Seen: 10/04/24 Time Patient Seen: 20:15 Interval history: She did well with physical therapy today. She has been up ambulating and has been to the garcia. She would like to go home. Exam Vital Signs (past 8 hours): - 10/04/24 16:00 Temperature 99.0 F Pulse Rate 74 Respiratory Rate 16 Blood Pressure 167/88 H Pulse Oximetry 98 Oxygen Flow Rate 0 Oxygen Delivery Method Room Air Oxygen Flow Rate 0 Narrative Exam Narrative: Resting comfortably in a chair, calves are soft bilaterally, dressing intact, minimal pain with range of motion Objective Labs 10/04/24 04:18 10/04/24 04:18 Labs: Laboratory Results - last 24 hr 10/04/24 04:18 WBC 6.3 RBC 3.05 L Hgb 9.6 L Hct 28.5 L MCV 93.3 MCH 31.5 MCHC 33.8 RDW 12.7 Plt Count 207 Neut % (Auto) 82.1 H Lymph % (Auto) 9.1 L Wayne % (Auto) 8.7 Eos % (Auto) 0.0 L Baso % (Auto) 0.1 Neut # (Auto) 5100 Lymph # (Auto) 600 L Wayne # (Auto) 500 Eos # (Auto) 0 Baso # (Auto) 0 Sodium 133 L Potassium 4.2 Chloride 105 Carbon Dioxide 23 BUN 11 Creatinine 0.56 Estimated GFR > 60 BUN/Creatinine Ratio 19.6 Glucose 117 H Calcium 8.1 L Magnesium 1.9 Total Bilirubin 0.6 AST 29 ALT 17 Alkaline Phosphatase 52 Total Protein 5.9 L Albumin 3.1 L Globulin 2.8 Albumin/Globulin Ratio 1.1 [facility] Social History marital status: household members: spouse Smoking Status: Never smoker alcohol intake: current Assessment & Plan Post-op Postoperative Procedures: Procedures Operation Date: 10/03/24 17:00 Actual Procedure Side Surgeon p Intramedullary Nailing Femur Right Chari Collazo MD Postoperative day: 1 Postoperative status: doing well Postoperative status narrative: She is doing well postoperatively. Postoperative plan: routine post-op care Postoperative plan narrative: Continue PT tomorrow I told her she can be discharged to home after she is seen by therapy tomorrow.
[2024-10-04] MEDS: OXYCODONE IR 10 MG TABLET PO (21:34)
[2024-10-05 02:00] VITALS: BP 157/75; PULSE 74; RESP 18; TEMP 37.4; O2SAT 98
[2024-10-05 05:39] LABS: Add Manual Diff / Slide Review NO; Basophils Absolute Auto 0 /uL (0-100); Basophils Percent Auto 0.9 % (0-2); Eosinophils Absolute Auto 100 /uL (0-450); Eosinophils Percent Auto 2.1 % (2-4); Hematocrit 26.8 % (36-46); Hemoglobin 9.3 g/dL (12.0-16.0); Lymphocytes Absolute Auto 1200 /uL (1100-4500); Lymphocytes Percent Auto 22.8 % (25-40); Mean Corpuscular HGB Conc 34.9 % (30-36); Mean Corpuscular Volume 91.8 fL (80-100); Monocytes Absolute Auto 600 /uL (0-900); Monocytes Percent Auto 11.4 % (3-14); Neutrophils Absolute Auto 3300 /uL (1500-7000); Neutrophils Percent Auto 62.8 % (50-75); Platelet Count 233 X10^3/uL (150-400); Red Blood Cell Count 2.92 X10^6/uL (4.0-5.2); Red Cell Distribution Width 12.7 % (11.6-14.8); White Blood Cell Count 5.3 X10^3/uL (4.5-11.0)
[2024-10-05 05:44] LABS: Alanine Aminotransferase 16 IU/L (<35); Albumin 3.1 g/dL (3.5-5.0); Albumin Globulin Ratio 1.1 (1.0-2.8); Alkaline Phosphatase 55 U/L (38-126); Aspartate Aminotransferase 31 IU/L (14-36); BUN Creatinine Ratio 23.7 (6-22); Bilirubin Total 0.5 mg/dL (0.2-1.3); Blood Urea Nitrogen 14 mg/dL (7-17); Calcium 8.2 mg/dL (8.4-10.2); Carbon Dioxide 27 mmol/L (22-32); Chloride 105 mmol/L (98-107); Estimated Glomerular Filt Rate > 60 mL/min (>60); Globulin 2.8 g/dL (1.7-4.1); Glucose 97 mg/dL (70-99); HEMOLYSIS < 15 (0-50); Magnesium 1.9 mg/dL (1.6-2.3); Sodium 136 mmol/L (137-145); Total Protein 5.9 g/dL (6.3-8.2)
[2024-10-05 08:00] VITALS: BP 157/86; PULSE 91; RESP 18; TEMP 37.7; O2SAT 99
[2024-10-05] MEDS: OXYCODONE IR 5 MG TABLET PO (08:46)
[2024-10-05] MEDS: ACETAMINOPHEN 325 MG TABLET 650 MG PO (08:46)
--- NOTE | 2024-10-05 10:40 | OT.IP.TRT ---
Current Diagnoses Age-related osteoporosis with current pathological fracture, right femur, initial encounter for fracture (10/02/24) Displaced intertrochanteric fracture of right femur, initial encounter for closed fracture (10/02/24) Surgery Performed Operation Date: 10/03/24 17:00 Actual Procedures p Intramedullary Nailing Femur(Right) - Chari Collazo MD Occupational Therapy Treatment Note M2 OT-IP Current Condition Start: 10/04/24 10:54 Freq: Status: Active Protocol: Document 10/04/24 10:54 [facility] (Rec: 10/04/24 11:07 [facility] Desktop) Occupational Therapy Current Condition Current Condition Evaluation Date 10/02/24 Treatment Diagnosis S/P R Hip ORIF Diagnosis Onset Date 10/04/24 Post Operative Precautions Other Precautions Pt must use the FWW fro 6 wks. M3 OT- IP Subjective and Pain Start: 10/04/24 10:54 Freq: Status: Active Protocol: Document 10/05/24 10:41 [facility] (Rec: 10/05/24 11:14 [facility] Desktop) OT- Subjective Occupational Therapy Visit Type Type Treatment Note Visit Start Time 09:10 Visit Stop Time 10:40 Occupational Therapy Visit Comments Patient Comments Pt agreed to use the bathroom and shower. Patient/Caregiver Goals TO go home. OT Pain Assessment Pain When Pain Assessed At Rest Pain Present Pain Present Denied Pain M4 OT- IP ADL's Start: 10/04/24 10:54 Freq: Status: Active Protocol: Document 10/05/24 10:41 [facility] (Rec: 10/05/24 11:14 [facility] Desktop) OT [id number]-[id number] General Evaluation Self-Feeding Ability Independent OT ADL-Grooming General Evaluation Grooming Ability Minimal Assistance Areas Needing Assistance Combing/Brushing Hair Comments OT Grooming Comments Whiles seated, MARCUS to help detangle her hair. OT ADL-Oral Care Comments Oral Care Comments Pt states did prior. OT ADL-Dressing General Eval Upper Body Dressing Ability Independent Lower Body Dressing Ability Moderate Assistance Comments OT Dressing Comments Assist to help thread her RLE and assist to get her shoes on . Suggested pt get LB dressing equipment to assist with her needs or her will have to assist her. OT ADL-Toileting General Evaluation Toileting Ability Standby Assistance Comments OT Toileting Comments set-up assist Suggested to wear pads at night so not to have to hurry to the bathroom, also to have her pets not present for risk of falling. A BSC will be helpful for pt to have. OT ADL-Bathing Bathing Type Bathing Type Shower General Evaluation Bathing Ability Moderate Assistance Areas Needing Assistance Wash/Dry Back,Wash/Dry Lower Extremities Comments OT Bathing Comments Pt will benefit from a tub bench at home and HHSP. Pt states to have her girlfriends come to assist her. M5 OT- IP IADL's Start: 10/04/24 10:54 Freq: Status: Active Protocol: Document 10/04/24 10:54 [facility] (Rec: 10/04/24 11:07 [facility] Desktop) OT-Instrumental Activities of Daily Living Home Safety Awareness Awareness of Need for Assistance at Home Good Awareness Ability to Problem Solve Emergency Able to Problem Solve Situations Medication Management Medication Management No Deficits Identified Money Management Money Management No Deficits Identified Meal Preparation Meal Preparation Comments Pt's to be able to asisst. Thermite Welder Thermite Welder Comments Pt's to assist. M6 OT- IP Functional Cognition Start: 10/04/24 10:54 Freq: Status: Active Protocol: Document 10/05/24 10:41 [facility] (Rec: 10/05/24 11:14 [facility] Desktop) Cognitive Factors Limiting Selfcare Function Cognitive Comments Cognitive Assessment Comments Pt doing much better today. Pt states still constipated and nursing notified. Pt needing cues to take smaller steps while turning. M7 OT- IP Mobility and Balance Start: 10/04/24 10:54 Freq: Status: Active Protocol: Document 10/05/24 10:41 [facility] (Rec: 10/05/24 11:14 [facility] Desktop) OT-Transfer Assessment Sit to and From Stand Sit to and from Stand Standby Assistance Transfers Transfer Ability Standby Assistance,Contact Guard Assistance Technique Transfer Destination Chair,Shower Stall,Toilet Transfer Technique Stand Step Pivot Devices Transfer Assistive Devices Gait Belt,Front Wheeled Walker Comments Mobility Comments Pt moving much better today. Able to issued FWW to pt. Pt CGA when having to step over the threshold of the shower. Pt needing reminders to take small steps while turning and vc to slow down. OT- Balance Assessment Sitting Balance and Reactions Static Sitting Balance Ability Normal Dynamic Sitting Balance Ability Good Standing Balance and Reactions Static Standing Balance Ability Good Dynamic Standing Balance Ability Fair M8 OT- IP Objective Assessments Start: 10/04/24 10:54 Freq: Status: Active Protocol: Document 10/04/24 10:54 [facility] (Rec: 10/04/24 11:07 [facility] Desktop) OT Gross Range of Motion Upper Extremity Range of Motion Assessment Within Functional Limits OT Strength Upper Extremity Strength Assessment Within Functional Limits M9 OT- IP Assessment and Plan Start: 10/04/24 10:54 Freq: Status: Active Protocol: Document 10/05/24 10:41 [facility] (Rec: 10/05/24 11:14 [facility] Desktop) OT Summary Assessment and Plan Potential Rehabilitation Potential Excellent Analytic Complexity at Evaluation Low Summary OT Impairments Pain,Strength,Balance, Functional Mobility,Dressing, Toileting,Bathing,Toilet Transfers,Shower Transfers, Activity Tolerance Progress Towards Goals Progressing Toward Goals Assessment Summary Pt doing very well today and able to walk into and out the bathroom, toilet, shower, and dress. Pt will benefit from LB dressing equipment, BSC, and tub bench. FWW issued to the pt. Pt to go home with assist. Goals Self-Feeding Goal Independent Grooming Goal Independent Dressing Goal Independent,Long Handled Shoe Horn,Selvage Machine Operator,Sock Aid Toileting Goal Independent Bathing Goal Minimal Assistance Toilet Transfer Goal Independent Shower Transfer Goal Contact Guard Assistance Days to Meet Goals 5 Frequency of Treatment Other frequency 5x/week Treatment Plan OT Treatment Plan ADL Training,Functional Mobility,Patient/Family Education,Discharge Planning Discharge Recommendations OT Discharge Recommendations Home with / Assist Available Home Equipment Needs BSC, tub bench, FWW , LB dressing equipment Transportation Needs at Discharge Private Vehicle
--- NOTE | 2024-10-05 11:16 | PT.IPTN ---
Current Diagnoses Age-related osteoporosis with current pathological fracture, right femur, initial encounter for fracture (10/02/24) Displaced intertrochanteric fracture of right femur, initial encounter for closed fracture (10/02/24) Surgery Performed Operation Date: 10/03/24 17:00 Actual Procedures p Intramedullary Nailing Femur(Right) - Chari Collazo MD Physical Therapy Treatment Note M2 PT-IP Current Condition Start: 10/04/24 12:29 Freq: NEEDED Status: Active Protocol: Document 10/04/24 09:50 DLM (Rec: 10/04/24 13:06 DLM Desktop) Physical Therapy Current Condition Current Condition Evaluation Date 10/04/24 Treatment Diagnosis right hip fx, s/p ORIF, impaired gait Onset Date 10/02/24 M3 PT-IP Subjective Start: 10/04/24 12:29 Freq: NEEDED Status: Active Protocol: Document 10/05/24 11:16 AB (Rec: 10/05/24 13:08 AB [id number]) Subjective Physical Therapy Visit Type Type Treatment Note Visit Start Time 11:16 Visit Stop Time 12:00 Number of EVENTS INTERN Visits 0 Physical Therapy Visit Comments Patient Comments agreeable to do PT Therapy Pain Assessment Pain When Pain Assessed At Rest Pain Present Pain Present Pain Reported Location Right Hip Intensity 5 Scale Used Numeric (0 - 10) Pain Management Techniques Distraction,Modification of Treatment,Re-positioning, Timing of Activity with Medications M4 PT-IP Mobility and Gait Start: 10/04/24 12:29 Freq: NEEDED Status: Active Protocol: Document 10/05/24 11:16 AB (Rec: 10/05/24 13:08 AB [id number]) PT-Bed Mobility Assessment Supine to Sit Supine to Sit Standby Assistance Sit to Supine Sit to Supine Standby Assistance PT-Transfer Assessment Sit to and From Stand Sit to and from Stand Contact Guard Assistance,1 Person Assistance,Use of Upper Extremities Equipment Transfer Assistive Device Gait Belt,Front Wheeled Walker Orthotic/Prosthetic Devices or Brace: No Transfers Transfer Destination Bed,Chair Transfer Technique ambulated Transfer Ability Level of Assist Contact Guard Assistance,1 Person Assistance,Use of Upper Extremities Comments Mobility Comments pt sitting on the chair and spouse in room. caregiver training conducted. educated spouse on how to use safety belt. spouse was able to put safety belt on pt. pt completed sit to stand from the chair CGA and ambulated in room ~ 25 ft using FWW CGA and sat on the EOB. completed sit<>supine SBA. educated pt on techniques for bed mobility to make task easier. pt repeated bed mobility again SBA. spouse assisted pt with sit to stand from EOB and ambulated pt in the hallway using FWW CGA ~ 100 ft. stair climbing training: educated pt and spouse on how to do stairs: pt completed up/ down platform step using FWW for support min A and up/down stairs holding on to R rail with B hands min A. spouse was able to assist pt safely. assisted pt back to her room. pt ambulated from w/c to chair using fWW CGA. positioned pt on the chair. call light and table placed within reach. pt and spouse without further concerns. Gait Assessment Gait Gait Assistance Required: Contact Guard Assist Distance (Feet) 100 Able to Maintain Weight Bearing Status Yes During Gait Assistive Devices Assistive Device Gait Belt,Front Wheeled Walker Orthotic/Prosthetic Devices or Brace: No Gait Deviations General Gait Pattern Antalgic,Decreased Stride Length,Decreased Feet Clearance Factors Limiting Gait Function Factors Limiting Gait Function Decreased Activity Tolerance, Decreased Strength,Limited Range of Motion,Pain,Poor Balance,Poor Safety Awareness Stair Climbing Assessment Evaluation Level of Assist On Stairs Minimal Assistance Devices Stair Climbing Assistive Devices Front Wheel Walker,Right Railing Technique/Endurance Stair Climbing Direction Ascend and Descend Stair Climbing Technique Step to Step Number of Steps Climbed 3 Stair Climbing Set # Repetitions (reps) 1 Comments Stair Climbing Comments pls refer to mobility section for details M5 PT-IP Objective Assessments Start: 10/04/24 12:29 Freq: NEEDED Status: Active Protocol: Document 10/04/24 09:50 DLM (Rec: 10/04/24 13:06 DLM Desktop) Orientation Orientation/Cognition Level of Alertness Alert Orientation Name,Age,Birthday,Month,Date, Year,Day of Week,Place, Situation Language Function Ability No Deficits Noted Safety Awareness Understands Safety Issues Memory Description No Deficits Noted Gross Range of Motion Upper Extremity ROM Assessment Within Functional Limits Impairments hx left shoulder dislocation but able to use if functionally now with good recovery Lower Extremity ROM Assessment Within Functional Limits Strength Upper Extremity Strength Assessment Within Functional Limits Lower Extremity Strength Assessment Right Impaired Hip flexion 3-/5 Knee ext 3/5 Ankle DF 4+/5 Comments Strength Comments pain right hip and thigh area limits strength Coordination Assessment Gross Coordination Gross Coordination WNL Sensation Assessment Sensation Gross Sensation WNL Comments Sensation Comments no numbness/tingling reported Muscle Tone Muscle Tone WNL Yes Comments Muscle Tone Comments she reports a hx of muscle spasms in LE's with some restless leg M6 PT-IP Treatment Start: 10/04/24 12:29 Freq: NEEDED Status: Active Protocol: Document 10/05/24 11:16 AB (Rec: 10/05/24 13:08 AB [id number]) Physical Therapy Treatment Education Education Provided Safety M7 PT-IP Assessment and Plan Start: 10/04/24 12:29 Freq: NEEDED Status: Active Protocol: Document 10/05/24 11:16 AB (Rec: 10/05/24 13:08 AB [id number]) PT Summary Assessment and Plan Potential Rehabilitation Potential Good Summary Impairments Pain,ROM,Strength,Balance, Coordination,Sensation,Tone, Cognition,Bed Mobility, Transfers,Gait,Activity Tolerance Progress Towards Goals Slow Progress due to Pain,Slow Progress due to Activity Tolerance Assessment Summary pt progressing with mobility and able to ambulate using FWW ~ 100 ft CGA. caregiver training conducted and spouse was able to safely assist pt. pt plans to go home and will benefit from outpt PT. OT dispensed FWW to pt. Goals Bed Mobility Goal Independent Transfer Goal Standby Assistance,Front Wheeled Walker Gait Goal Standby Assistance,Front Wheel Walker Gait Distance 100 feet Other Goals up/down 3 steps with min assist and UE support Days to Meet Goals 3 Frequency of Treatment Frequency Of Treatment Twice a Day Treatment Plan Physical Therapy Treatment Plan Bed Mobility Training,Transfer Training,Gait Training, Therapeutic Exercise,Balance Retraining,Post Op Education, Discharge Planning,Hot or Cold Pack,Neuromuscular Re-ed Precautions Other Precautions order for pt to use FWW at all times for 6 weeks s/p ORIF osteoporosis Weight Bearing Status Weight Bearing Status Weight Bear as Tolerated Allowed Weight Bearing Amount (enter % right LE with FWW or #) (%) Recommendations To Nursing Amount of Assist Needed 1 Person Assist Discharge Recommendations PT Discharge Recommendations Home with Assistance, Outpatient PT Transportation Needs at Discharge Private Vehicle - PT assist 1
--- NOTE | 2024-10-05 11:51 | CM.DPNOTE ---
DC Note Patient has been discharged and is eager to return home. Patient will seek outpatient therapy. Transport via spouse. No needs identified from this CM team. JOHN
--- NOTE | 2024-10-05 12:59 | PM.DS.IH.1 ---
History of Present Illness History of Present Illness Date Patient Seen: 10/05/24 Time Patient Seen: 09:45 Chief complaint: DIRECT ADMIT right hip pain Narrative: 79 y/o w/o reported PMH, on no prescription medications, transferred from another hospital with Rt hip fracture. She sustained accidental ground level fall. First fracture. Without prior injury-falls. Physically active, hikes. Has osteoporosis in family and on X-ray, takes only MVI. Discharge Providers Provider Date of admission: 10/02/24 17:49 Discharge Date: 10/05/24 Consults: 10/02/24 23:02 Consult to Dietitian, Adult Routine Comment: Reason For Exam: low BMI 10/03/24 18:13 Consult to Discharge Planning Routine Comment: Consult to Occupational Therapy Evaluate & Treat Comment: Physician Instructions: Evaluate and treat Consult to Physical Therapy Evaluate & Treat Comment: Weightbear as tolerated but must use walker Physician Instructions: Evaluate and Treat 10/04/24 11:08 Consult to Physical Therapy Evaluate & Treat Comment: Physician Instructions: FWW for home use Discharge provider: Jarod Elkins MD Summary Hospital Course Discharge Diagnosis: 1. Right intertrochanteric femur fracture, pathologic due to osteoporosis 2. Elevated BP without diagnosis of HTN 3. Normocytic anemia, likely due to surgical blood loss and baseline anemia Hospital Course: The patient was admitted and underwent right hip intramedullary denisse placement on 10/03/[address] Chari Collazo. She tolerated the procedure well. She was able to get up and walk the following day with physical therapy. She was treated with postoperative DVT prophylaxis per protocol. She was feeling well, cleared by Orthopedics and Physical therapy and interested in discharge home. Status at Discharge Cognitive/behavioral status at discharge: oriented Functional status at discharge: uses cane/walker Overall status at discharge: patient is progressing back to baseline Time Spent with Patient Time spent: Less than 30 minutes Exam Vital Signs (past 8 hours): - 10/05/24 08:00 Temperature 99.8 F H Pulse Rate 91 H Respiratory Rate 18 Blood Pressure 157/86 H Pulse Oximetry 99 Oxygen Flow Rate 0 Oxygen Delivery Method Room Air Oxygen Flow Rate 0 Narrative Exam Narrative: Gen: elderly female, well appearing, no acute distress CV: RRR no m/r/g Pulm: CTA b/l Abd: S NT ND Ext: no edema. Objective Imaging *: Radiologist's impression: 1. Pelvis x-ray 10/02/2024: ORIF right intertrochanteric fracture in anatomic alignment 2. Hip x-ray 10/03/2024: Fluoro guidance was provided intraoperatively for ORIF of right proximal femur performed by ordering physician. 3. Hip x-ray 10/03/2024: ORIF right intertrochanteric fracture in anatomic alignment Labs 10/05/24 05:10 10/05/24 05:10 Labs: Laboratory Results - last 24 hr 10/05/24 05:10 WBC 5.3 RBC 2.92 L Hgb 9.3 L Hct 26.8 L MCV 91.8 MCH 32.0 MCHC 34.9 RDW 12.7 Plt Count 233 Neut % (Auto) 62.8 Lymph % (Auto) 22.8 L [place] % (Auto) 11.4 Eos % (Auto) 2.1 Baso % (Auto) 0.9 Neut # (Auto) 3300 Lymph # (Auto) 1200 [place] # (Auto) 600 Eos # (Auto) 100 Baso # (Auto) 0 Sodium 136 L Potassium 4.0 Chloride 105 Carbon Dioxide 27 BUN 14 Creatinine 0.59 Estimated GFR > 60 BUN/Creatinine Ratio 23.7 H Glucose 97 Calcium 8.2 L Magnesium 1.9 Total Bilirubin 0.5 AST 31 ALT 16 Alkaline Phosphatase 55 Total Protein 5.9 L Albumin 3.1 L Globulin 2.8 Albumin/Globulin Ratio 1.1 PFSH Social History marital status: household members: spouse Smoking Status: Never smoker alcohol intake: current Discharge Plan Discharge Plan Patient Disposition: Home Provider Discharge Comment: Followup with orthopedics as directed, DVT prophylaxis per surgery, home health services per case management Discharge orders & Medications Prescriptions: New gabapentin 300 mg capsule 300 mg PO TID PRN (Reason: pain) Qty: 30 0RF oxycodone 5 mg Tablet 5 mg PO Q3H PRN (Reason: Pain, Moderate (4-6)) Qty: 10 0RF Continued Adults Multivitamin 1 tab PO DAILY Diet/Activity/Treatments Other treatments: DVT prophylaxis: recommended Lovenox 30 mg subcutaneous daily x4 weeks Visit Report/Discharge Packet Stand Alone Forms: Patient Portal/API, Stroke Signs & Symptoms Quality MIPS - Admit I confirm the patient?s Advance Care Plan is present, Code status is documented, Surrogate decision maker is in patient?s record [If Yes, STOP here]: Yes MIPS - Meds 'Current medications' to include all prescriptions, [id number]-[id number] products, herbals, cannabis/cannabidiol products, and vitamin/mineral/dietary (nutritional) supplements. I have utilized all available resources to obtain, update, or review the patient?s current medications. [If Yes, STOP here]: Yes MIPS - DC The patient has a history of heart transplant or Left Ventricular Assist Device (LVAD). If yes, STOP here.: No The patient has current or prior documentation of left ventricular ejection fraction (LVEF) less than or equal to 40%, or moderate or severely depressed left ventricular systolic function.: No A. The patient was prescribed or already taking an Angiotensin-Converting Enzyme (FATUMA) Inhibitor, or Angiotensin Receptor [place] (ARB).: No B. The patient was prescribed or already taking a beta-col[place]. [If Yes to Both A & B, STOP here]: No Patient not prescribed/taking FATUMA or ARB, no reason given.: No Patient not prescribed/taking beta-col[place], no reason given.: No IH PROFEE Charge Codes Discharge inpatient/observation: [id number]
--- NOTE | 2024-10-05 14:22 | PC.NURSE ---
Patient is awake A&OX4, VSS, afebrile on RA. She expresses some anxiety about pain with stairs and doing career development coordinator training with PT this a.m. She is able to ambulate x1 SBA to BR using FWW and tolerate breakfast well. Her arrives at 11 a.m. and PT is notified of his arrival. She is able to work with PT and caregiver training successfully and cleared for discharge home. MD Elkins notifed of discharge clearance. RN called MD Schumacher (on-call) for Fabiana and clarified need for lovenox injections mentioned in discharge paperwork. Per MD Schumacher patient is recommended to take a baby aspirin 81mg BID x6 weeks and instructed to disregard lovenox. She acknowledges understanding of medications, site care, s/sx of infection as well as follow up appointment post op needing to be made with MD Jung's office. She is escorted via w/ch by ADHESIVE BONDING MACHINE OPERATOR to private vehicle with spouse for discharge home with all of her belongings (including personal FWW) at approximately 1300
== END 2024-10-05 13:00 | disposition home or self-care (01) | DRG 481 ==
PROVIDERS: Internal Medicine; Admitting Provider Internal Medicine; Referring Provider Orthopaedic Surgery Foot and Ankle Surgery; Visit Provider Internal Medicine
PROC: 0QS606Z Reposition Right Upper Femur with Intramedullary Internal Fixation Device, Open Approach (ICD-10-PCS; CPT 27245; principal; 2024-10-03 17:00)
DX: M80.051A Age-related osteoporosis with current pathological fracture, right femur, initial encounter for fracture (principal); Z68.1 Body mass index [BMI] 19.9 or less, adult; R63.6 Underweight; D64.9 Anemia, unspecified; R03.0 Elevated blood-pressure reading, without diagnosis of hypertension
CPT/HCPCS: 36415; 72170; 73502; 76000; 80053; 82306; 83735; 85025; 85610; 85730; 93005; 93010; 97110; 97116; 97162; 97165; 97530; 97535; C1713; G0379; J0330; J0690; J1100; J1171; J1650; J2405; J2704; J3010